=== PATIENT | female | born 2000 | race Two or more races ===

== ENCOUNTER 2022-05-04 11:33 | Emergency (ER) | payer SELFPAY ==
[~2022-05-04] VITALS: Ht 157.5 cm; Wt 46.3 kg
[2022-05-04 11:37] VITALS: BP_SYST 116
[2022-05-04] MEDS ORDERED: IBUPROFEN 400 MG TABLET PO ONE (13:00)
[2022-05-04 13:21] VITALS: BP_SYST 116
== END 2022-05-04 13:22 | disposition home or self-care (01) ==
LOC: SED 11:33
DX: R07.89 Other chest pain (principal); R09.1 Pleurisy; F41.9 Anxiety disorder, unspecified; Z79.899 Other long term (current) drug therapy
CPT/HCPCS: 71045; 93005; 99283